=== PATIENT | male | born 1990 ===

== ENCOUNTER 2020-01-15 08:34 | Day surgery (SDC) | payer OTHER ==
[~2020-01-15] VITALS: Ht 175.3 cm; Wt 71.2 kg
== END 2020-01-15 16:45 | disposition home or self-care (01) ==
LOC: ORSCMMR 08:34 → ORD 09:00 → ORSCMMR 09:30
PROVIDERS: Orthopaedic Surgery
PROC: 0PSP04Z Reposition Right Metacarpal with Internal Fixation Device, Open Approach (ICD-10-PCS; principal; 2020-01-15 10:15)
PROC: 0PBP0ZZ Excision of Right Metacarpal, Open Approach (ICD-10-PCS; principal; 2020-01-15 10:15)
DX: S62.324A Displaced fracture of shaft of fourth metacarpal bone, right hand, initial encounter for closed fracture (principal); W22.8XXS Striking against or struck by other objects, sequela; Z87.891 Personal history of nicotine dependence
CPT/HCPCS: A9270-GY; C1713; J0690; J1100; J1885; J2250; J2405; J2704; J3010; J7120

== ENCOUNTER → 2020-10-06 | Outpatient (CLI) | payer OTHER | END | disposition home or self-care (01) | LOC: LAB SHORT 11:00 | DX: J02.9 Acute pharyngitis, unspecified (principal) | CPT/HCPCS: 87081 ==

== ENCOUNTER 2025-05-15 10:55 | Emergency (ER) | payer OTHER ==
[~2025-05-15] VITALS: Ht 175.3 cm; Wt 79.4 kg
[2025-05-15] MEDS ORDERED: Dexamethasone Sod Phos 10 MG/ML 1ML VIAL IV ONE (11:00)
[2025-05-15] MEDS ORDERED: ALLEGRA ALLERGY60 MG PO (13:14)
[2025-05-15] MEDS ORDERED: EPIPEN0.3 MG/0.3 IM (13:14)
[2025-05-15 13:40] VITALS: BP 113/66
== END 2025-05-15 13:50 | disposition home or self-care (01) ==
LOC: ER 10:55
DX: T63.451A Toxic effect of venom of hornets, accidental (unintentional), initial encounter (principal); R06.02 Shortness of breath; L25.8 Unspecified contact dermatitis due to other agents
CPT/HCPCS: 93005; 93010; 96374; 96375; 99285-25; J1100